=== PATIENT | female | born 1990 | race Caucasian/White ===

== ENCOUNTER 2017-10-08 05:16 | Inpatient (IN) | payer MEDICAID ==
[2017-10-06 11:17] LABS: BASOPHILS 0.1 % (0-2); EOSINOPHILS 3.3 % (0-7); HEMATOCRIT 40.2 % (36.0-48.0); LYMPHOCYTES 25.4 % (15-50); MCH 30.4 pg (26.0-34.0); MCHC 34.8 g/dL (31.0-37.0); MCV 87.2 fL (80.0-100.0); MEAN PLATELET VOLUME 9.2 fL (7.4-10.4); MONOCYTES 6.2 % (2-11); PLATELET COUNT 254 10x3/uL (130-400); RBC 4.61 10x6/uL (4.00-5.40); RDW 13.5 % (11.5-14.5); WBC 6.9 10x3/uL (4.8-10.8)
[2017-10-06 11:26] LABS: CALC OSMOLALITY 268 mosm/kg (275-300); CALCIUM 8.8 mg/dL (8.5-10.1); CHLORIDE - SERUM 102 mmol/L (98-107); CREATININE - SERUM 0.6 mg/dL (0.6-1.3); GLUCOSE 69 mg/dL (74-106); POTASSIUM - SERUM 3.8 mmol/L (3.5-5.1); SODIUM 136 mmol/L (136-145); UREA NITROGEN 9 mg/dL (7-18); eGFR NON AFRICAN AMERICAN > 90 mL/min (90-120)
[~2017-10-08] VITALS: Ht 149.9 cm; Wt 74.1 kg
[2017-10-08] VITALS (8 sets, daily range): BP systolic 94–114; BP diastolic 55–70; Ht 149.9 cm; Wt 74.1 kg
--- NOTE | ~2017-10-08 | DS ---
PATIENT:RITU EGAN :89 MEDICAL RECORD: [id number] DISCHARGE SUMMARY ADMISSION DATE: 10/08/17 DISCHARGE DATE: 10/10/17 HOSPITAL COURSE: The patient was admitted on 10/08/2017. A 27-year-old with pelvic pain and menorrhagia, refractory to medical therapy. The patient with suspected endometriosis. The patient with worsening pain since her making adhesive disease a suspected etiology. Plan at that time was for hysterectomy. PAST MEDICAL HISTORY: Significant for: 1. Herpes simplex genital infection. 2. Migraines. 3. Endometriosis. 4. The patient reported mild intermittent asthma as a child. 5. The patient also with acid reflux and anxiety/depression. PAST SURGICAL HISTORY: The patient reported surgical history significant for times 3 and distal bilateral partial salpingectomy. ALLERGIES: The patient reported allergies to HYDROCODONE and OXYCODONE. FAMILY HISTORY: The patient with no significant family history reported. SOCIAL HISTORY: Alcohol use, not during . PHYSICAL EXAMINATION: VITAL SIGNS: On initial assessment, vital signs were stable. The patient was normotensive and afebrile. LUNGS: Clear to auscultation. CARDIOVASCULAR: Regular rate and rhythm. ABDOMEN: Soft, appropriately tender. EXTREMITIES: Lower extremities were free of Homans sign, erythema, or swelling. On admit vital signs, the patient was normotensive and afebrile. ASSESSMENT AND PLAN: On admission: 1. Pelvic pain. 2. Endometriosis. 3. Adhesive disease. 4. Herpes simplex virus. 5. Migraines. 6. Gastroesophageal reflux. Plan at that time for RUBI and possible lysis of adhesion. The risks and benefits were explained. The patient voiced understanding and consent. Supracervical hysterectomy, lysis of adhesions was performed. Operative report is as dictated. The patient did well overnight on postop day #0. The patient on IV fluids, tolerating clear liquids on a Dilaudid [employer] and IV Toradol. Cano catheter was in and draining freely with adequate urine output. Lower extremities were free of Homans sign, SCDs were on and functioning appropriately. On the morning of postop day #1, the patient continued to do well. Vital signs were stable. The patient was afebrile. Hemoglobin was found to be 11 and creatinine at 0.8. Incision was clean, dry and intact. The DISCHARGE SUMMARY REPORT [id number] RITU EGAN abdomen was soft, appropriately tender and nondistended. The patient was noted at that time advanced to general diet and p.o. pain meds. Cano catheter was removed and ambulation begun. The patient continued to improve during the day and overnight on postop day #1. On the morning of postop day #2, the patient continued to do well. Vital signs were stable. The patient was afebrile. Creatinine was found to be 0.7 and hemoglobin was found to be stable. Incision was clean, dry and intact. The patient was discharged home on postop day #2 with instructions to follow up for staple removal the next week. TRANSINT:[id number] Voice Confirmation ID: [id number] DOCUMENT ID: [id number] JN ENGLISH MD at 1259 CC: [id number] DICTATION DATE: 11/15/17 0849 ORDER ANALYST: 11/15/17 1158 DIS IN 10/10/17 [place] [id number] [place] [id number]
--- NOTE | ~2017-10-08 | OP ---
PATIENT NAME: RITU EGAN MEDICAL RECORD: [id number] :89 LOCATION:[facility] ADMISSION DATE:10/08/17 SURGEON: JUANJOSE DEAN MD DATE OF OPERATION: 10/08/2017 PREOPERATIVE DIAGNOSES: 1. Pelvic pain. 2. Endometriosis/adenomyosis. POSTOPERATIVE DIAGNOSES: 1. Pelvic pain. 2. Endometriosis/adenomyosis. PROCEDURE: Supracervical hysterectomy and lysis of adhesions. SURGEON: Juanjose Dean MD ESTIMATED BLOOD LOSS: 300 cc. INTRAVENOUS FLUIDS: Per anesthesia record. SPECIMENS: Uterus without ovaries or cervix. FINDINGS: 1. Extensive adhesive disease involving the omentum rectus fascia, uterus, bilateral adnexa. 2. Fusion of the bladder to the cervix. 3. Uterus with suspected adenomyosis. 4. Normal-appearing ovaries bilaterally. 5. Fallopian tubes previously removed at the time of . ESTIMATED BLOOD LOSS: As mentioned was 300 cc. COMPLICATIONS: None apparent. DESCRIPTION OF THE PROCEDURE: The patient was taken to the operating room where a general anesthesia was achieved without difficulty. The patient was prepped and draped in normal sterile fashion in the dorsal supine position. A vag prep was performed and a Cano catheter had been placed and was draining freely. At this point, the previous Pfannenstiel skin incision was reentered and extended downward to the underlying subcutaneous fat to the level of fascia. This has been carefully excised in the midline using the scalpel, dissected bilaterally using the Latif scissors. Superior and inferior aspects of the fascial incision were then grasped with Jace clamps times 2, tented upward, and sharply dissected from the underlying rectus fascia using the Latif scissors and Bovie cautery. The rectus muscles were found to be densely adherent but the midline was appreciated and at the superior aspect of the incision, sharp dissection using the Metzenbaum scissors was used to enter the intraperitoneal space. Immediately upon excision of the peritoneum, omental tissue was noted. This was carefully dissected until intraperitoneal placement was confirmed. The midline peritoneum was then excised downward and the rectus muscles were then at the lower aspect of the incision. The omentum was progressively clamped and cut to obtain intraperitoneal exposure. Several pieces of the omentum were also removed. The omentum was also found to be attached to the OPERATIVE REPORT [id number] EGAN,RITU bilateral adnexa. This was carefully dissected using the Bovie cautery and areas were also oversewn with 2-0 Vicryl. Upon removal of the omental adhesions, the uterus was identified. The fallopian tubes as mentioned prior had been removed at the time of last . The bilateral ovaries were found to be fused to the pelvic sidewall. They were gently dissected using blunt and sharp cautery with the Metzenbaum scissors. The round ligaments were identified and grasped times 2 with Jace clamps, cut, and suture ligated. A bladder flap could not be created due to the extensive scar tissue; however, the anterior leaf of the broad ligament was carefully dissected downward and the bladder was found to be very densely adherent to the entirety of the cervix and the lower uterine segment. Careful dissection of the bladder was then performed until no longer covering the lower uterine segment, discovering the cervix, it was felt at that time that further dissection of the bladder would result in cystotomy and the patient had no recent history of cervical pathology. The defect was then made bilaterally in the posterior leaf of the broad ligament. The utero-ovarian ligaments were then clamped times 2, cut, and suture ligated using 0 Vicryl. The uterine vessels were then skeletonized bilaterally using the Metzenbaum scissors and curved Catrachito clamps were placed across the uterine vessels approximately at the level of the cervix. These were then clamped and cut and suture ligated with 0 Vicryl. A second straight Catrachito clamp was then placed medial to ensure ligation of the entire blood supply. This was then cut and suture ligated using 0 Vicryl and the uterus was amputated at the level of the internal cervical os. The cervix was then grasped on its posterior margin using a Jace clamp. The endocervical canal was then thoroughly cauterized with attention paid to avoid the anterior surface adjacent to the bladder. Cervical stump was then oversewn in an interrupted fashion with figure-of-8 #0-Vicryl with good hemostasis noted. The pelvis was then thoroughly irrigated. Counts were correct times 2 for lap sponges and instruments. The fascia was then repaired with 0 loop PDS times 1. Subcutaneous tissue approximated with 0 plain gut and the skin repaired with akilah. The patient tolerated the procedure well and was transferred to postanesthesia recovery stable without incident. 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
[~2017-10-08 05:16] MED LIST: INDERAL10 MG PO; VALIUM 2 MG TAB2 MG PO
[2017-10-08 06:24] LABS: HCG URINE NEGATIVE (NEGATIVE)
[2017-10-08 21:35] LABS: BASOPHILS 0 % (0-2); EOSINOPHILS 0 % (0-7); HEMOGLOBIN 12.2 g/dL (12-16); IMMATURE GRANULOCYTES 0.1 % (0-5); LYMPHOCYTES 5.2 % (15-50); MCHC 34.9 g/dL (31.0-37.0); MEAN PLATELET VOLUME 9.5 fL (7.4-10.4); MONOCYTES 3.3 % (2-11); NEUTROPHILS 91.4 % (40-80); PLATELET COUNT 224 10x3/uL (130-400); RBC 4.07 10x6/uL (4.00-5.40); RDW 13.1 % (11.5-14.5); WBC 14.1 10x3/uL (4.8-10.8)
[2017-10-08 21:55] LABS: CALC OSMOLALITY 273 mosm/kg (275-300); CALCIUM 8.4 mg/dL (8.5-10.1); CARBON DIOXIDE 27.1 mmol/L (21.0-32.0); CHLORIDE - SERUM 105 mmol/L (98-107); CREATININE - SERUM 0.6 mg/dL (0.6-1.3); SODIUM 137 mmol/L (136-145); UREA NITROGEN 6 mg/dL (7-18); eGFR NON AFRICAN AMERICAN > 90 mL/min (90-120)
[2017-10-08 21:57] LABS: GLUCOSE 135 mg/dL (74-106)
[2017-10-09 03:00] VITALS: BP 94/59
[2017-10-09 06:53] LABS: BASOPHILS 0 % (0-2); EOSINOPHILS 0 % (0-7); HEMATOCRIT 32.8 % (36.0-48.0); IMMATURE GRANULOCYTES 0.2 % (0-5); LYMPHOCYTES 9.8 % (15-50); MCH 29.3 pg (26.0-34.0); MCHC 33.5 g/dL (31.0-37.0); MCV 87.2 fL (80.0-100.0); MEAN PLATELET VOLUME 9.3 fL (7.4-10.4); MONOCYTES 6.1 % (2-11); NEUTROPHILS 83.9 % (40-80); PLATELET COUNT 229 10x3/uL (130-400); RBC 3.76 10x6/uL (4.00-5.40); RDW 13.2 % (11.5-14.5)
[2017-10-09 07:06] LABS: CALCIUM 8.3 mg/dL (8.5-10.1); CARBON DIOXIDE 30.6 mmol/L (21.0-32.0); CHLORIDE - SERUM 105 mmol/L (98-107); GLUCOSE 128 mg/dL (74-106); POTASSIUM - SERUM 3.8 mmol/L (3.5-5.1); SODIUM 141 mmol/L (136-145)
[2017-10-09 07:07] LABS: CALC OSMOLALITY 279 mosm/kg (275-300); CREATININE - SERUM 0.8 mg/dL (0.6-1.3); UREA NITROGEN 4 mg/dL (7-18); eGFR NON AFRICAN AMERICAN > 90 mL/min (90-120)
[2017-10-09 07:20] VITALS: BP 100/60
[2017-10-09 11:58] VITALS: BP 94/47
[2017-10-09 15:38] LABS: CALC OSMOLALITY 279 mosm/kg (275-300); CALCIUM 7.7 mg/dL (8.5-10.1); CARBON DIOXIDE 30.7 mmol/L (21.0-32.0); CHLORIDE - SERUM 106 mmol/L (98-107); CREATININE - SERUM 0.7 mg/dL (0.6-1.3); GLUCOSE 116 mg/dL (74-106); POTASSIUM - SERUM 3.3 mmol/L (3.5-5.1); SODIUM 141 mmol/L (136-145); eGFR NON AFRICAN AMERICAN > 90 mL/min (90-120)
[2017-10-09 15:46] LABS: UREA NITROGEN 7 mg/dL (7-18)
[2017-10-09 19:45] VITALS: BP 102/55
[2017-10-10 00:35] VITALS: BP 99/58
[2017-10-10 07:47] VITALS: BP 124/78
== END 2017-10-10 17:45 | disposition home or self-care (01) | DRG 743 ==
LOC: D.SDCHOLD → D.WS 11:07 → D.LD 10-10 11:21
PROVIDERS: Obstetrics & Gynecology
PROC: 0UT94ZL Resection of Uterus, Supracervical, Percutaneous Endoscopic Approach (ICD-10-PCS; principal; 2017-10-08 07:30)
DX: N92.0 Excessive and frequent menstruation with regular cycle (principal); K21.9 Gastro-esophageal reflux disease without esophagitis; B00.9 Herpesviral infection, unspecified; N73.6 Female pelvic peritoneal adhesions (postinfective); N80.0 Endometriosis of uterus

== ENCOUNTER 2019-12-01 11:02 | Emergency (ER) | payer MEDICAID ==
[~2019-12-01] VITALS: Ht 149.9 cm; Wt 86.4 kg
[2019-12-01 11:09] VITALS: BP 134/79; Ht 149.9 cm; Wt 86.4 kg
[2019-12-01] MEDS ORDERED: XANAX1 MG PO (11:11)
[2019-12-01] MEDS ORDERED: MEDROL DOSE PACK4 MG PO (11:44)
== END 2019-12-01 12:29 | disposition home or self-care (01) ==
LOC: D.ER 11:02
DX: M54.5 Low back pain (principal); K21.9 Gastro-esophageal reflux disease without esophagitis